=== PATIENT | female | born 1995 | race Caucasian/White ===

== ENCOUNTER 2017-01-01 15:23 | Emergency (ER) | payer MEDICAID ==
[2017-01-01 15:29] VITALS: BP 133/73; BMI 27.6
--- NOTE | 2017-01-01 15:59 | DR.GENAD ---
HPI - PCP Primary Care Physician: Jeffrey flanagan - HPI Comment HPI Comment: LEFT SIDED CHEST PAIN ASSOCIATED WITH NAUSEA, WEAKNESS AND SOB. - Complaint/Symptoms Chief Complaint Doctors Comments: CHEST PAIN TIMES ONE DAY. NO FEVER OR URI SYMTOMS. Chief Complaint:: CHEST PAIN SINCE LAST NIGHT - Nurses notes reviewed Nurses Notes Review: Yes - Source History Provided: Patient - Mode of Arrival Mode of Arrival: Ambulatory - Timing Onset of Chief Complaint: 12/31/16 Came on: Suddenly - Duration Duration: Constant Duration: Days - Severity Severity: Moderate PMH - PMH Past Medical History: No Past Surgical History: No - Family History History of Family Medical Conditions: Yes Family Medical History: Diabetes Mellitus, Cancer, Heart Failure, Hypertension - Social History Does patient currently use any type of tobacco product: Yes Have you used tobacco products in the last 12 months: Yes Type of Tobacco Use: Cigarettes How many years tobacco product used: 10 Does any household member use tobacco: No Alcohol Use: None Do you use any recreational Drugs:: No Lives With: Family Lives Where: Home - infectious screening In the last 2 months have you had wt loss of >10#?: NO Have you had fever, night sweats or hemotysis?: No Have you traveled outside the country in the last 6 months?: No Isolation: Standard ROS - Review of Systems Constitutional: Weakness, Fatigue. negative: Chills, Fever, Loss of Appetite Eyes: No Symptoms Reported. negative: Eye Pain, Discharge ENTM: No Symptoms Reported. negative: Ear Pain, Nose Discharge, Nose Congestion , Throat Pain Respiratoy: Short of Breath. negative: Productive Cough, Non-Productive Cough, Wheezing, Hemoptysis Cardiovascular: Chest Pain. negative: Edema, Palpitations Gastrointestinal/Abdominal: Nausea. negative: Abdominal Pain, Constipation, Diarrhea, Vomiting Genitourinary: No Symptoms Reported. negative: Dysuria, Frequency, Hematuria Neurological: No Symptoms Reported, Weakness Musculoskeletal: No Symptoms Reported Integumentary: No Symptoms Reported Hematologic/Lymphatic: No Symptoms Reported Endocrine: No Symptoms Reported All Other Systems: Reviewed and Negative PE - Vital Signs Vitals: Temperature 97.8 F Pulse Rate 74 Respiratory Rate 19 Blood Pressure 133/73 O2 Sat by Pulse Oximetry 100 - General Limitations: No Limitations General Appearance: Alert - Head Head Exam: Normal Inspection - Eyes Eye exam: Normal Appearance - ENT ENT Exam: Normal External Ear Exam External Ear Exam: Normal External Inspection TM/Canal Exam: Bilateral Normal Nose Exam: Normal Nose Exam Mouth Exam: Normal Inspection Throat Exam: Normal Inspection - Neck Neck Exam: Trachea Midline - Chest Chest Inspection: Symmetric Chest Wall Rise - Respiratory Respiratory Exam: Normal Lung Sounds Bilat, Chest Wall Tenderness (LT [place] TENDERNESS.) Respiratory Exam: Bilateral Clear to Auscultation - Cardiovascular Cardiovascular Exam: Regular Rate, Normal Rhythm, Normal Heart Sounds - Abdominal Exam Abdominal Exam: Normal Bowel Sounds, Soft. negative: Tenderness - Extremities Extremities Exam: Normal Inspection - Back Back Exam: Normal Inspection - Neurologic Neurological Exam: Alert, Oriented X3 - Psychiatric Psychiatric Exam: Normal Affect, Normal Mood - Skin Skin Exam: Normal Color MDM - Additional Information Additional Information Obtained From: Family - Differential Diagnosis Differential Diagnosis: CHEST PAIN, MT, PE, PUD, GASTRITIS, PNEUMONIA, PNEUMOTHORAX Course - Treatment Treatment: SEE ORDERS. - Education/Counseling Education/Counseling: Patient, Family, Education Educated On: Treatment, Diagnosis, Needs for Follow Up ROR - Labs Reviewed Laboratory Results Reviewed?: Yes Result Diagrams: 01/01/17 16:20 01/01/17 16:20 Laboratory: WBC 8.7 X10^3/uL (3.6-10.0) 01/01/17 16:20 RBC 4.39 X10^6/uL (3.5-5.4) 01/01/17 16:20 Hgb 12.8 g/dL (12.0-16.0) 01/01/17 16:20 Hct 37.4 % (36.0-47.0) 01/01/17 16:20 MCV 85.2 fL (80.0-100.0) 01/01/17 16:20 MCH 29.3 pg (27.0-34.0) 01/01/17 16:20 MCHC 34.3 g/dL (33.0-35.0) 01/01/17 16:20 RDW 14.0 % (11.6-16.5) 01/01/17 16:20 Plt Count 320 X10^3/uL (150.0-450.0) 01/01/17 16:20 MPV 7.8 fL (7.4-11.0) 01/01/17 16:20 Neut % 56.1 % (42.0-75.0) 01/01/17 16:20 Lymph % 33.5 % (21.0-51.0) 01/01/17 16:20 [place] % 6.1 % (0.0-13.0) 01/01/17 16:20 Eos % 3.6 % (0.9-2.9) H 01/01/17 16:20 Baso % 0.7 % (0.2-1.0) 01/01/17 16:20 Neut # 4.9 x10^3/uL (2.2-4.8) H 01/01/17 16:20 Lymph # 2.9 X10^3/uL (1.3-2.9) 01/01/17 16:20 [place] # 0.5 x10^3/uL (0.3-0.8) 01/01/17 16:20 Eos # 0.3 x10^3/uL (0.0-0.2) H 01/01/17 16:20 Baso # 0.1 X10^3/uL (0.0-0.1) 01/01/17 16:20 Absolute Nucleated RBC 0.1 /100WBC 01/01/17 16:20 D-Dimer < 100 ng/mL (0-400) 01/01/17 16:20 Sodium 142 mmol/L (136-145) 01/01/17 16:20 Corrected Sodium TNP 01/01/17 16:20 Potassium 4.1 mmol/L (3.5-5.1) 01/01/17 16:20 Chloride 107 mmol/L (98-107) 01/01/17 16:20 Carbon Dioxide 28.1 mmol/L (21-32) 01/01/17 16:20 BUN 5 mg/dL (7-18) L 01/01/17 16:20 Creatinine 0.76 mg/dL (0.55-1.02) 01/01/17 16:20 Est GFR (MDRD) Af Amer > 60 (>60) 01/01/17 16:20 Est GFR (MDRD) Non-Af > 60 (>60) 01/01/17 16:20 Glucose 87 mg/dL (65-99) 01/01/17 16:20 Calcium 8.6 mg/dL (8.5-10.1) 01/01/17 16:20 Corrected Calcium TNP 01/01/17 16:20 Total Bilirubin 0.20 mg/dL (0.2-1.0) 01/01/17 16:20 AST 10 Units/L (15-37) L 01/01/17 16:20 ALT 19 Units/L (12-78) 01/01/17 16:20 Alkaline Phosphatase 79 Units/L (46-116) 01/01/17 16:20 Creatine Kinase 43 Units/L (26-192) 01/01/17 16:20 CK-MB (CK-2) < 1.0 ng/mL (0-4.0) 01/01/17 16:20 CK/CKMB % Calc 2.3 % (<4) 01/01/17 16:20 Troponin I < 0.02 ng/mL (0-1.5) 01/01/17 16:20 Total Protein 7.1 g/dL (6.4-8.2) 01/01/17 16:20 Albumin 3.6 g/dL (3.4-5.0) 01/01/17 16:20 Globulin 3.5 g/dL (2.5-4.5) 01/01/17 16:20 Albumin/Globulin Ratio 1.0 Ratio (1.1-2.1) L 01/01/17 16:20 Specimen Type Clean catch urine 01/01/17 16:40 Urine Color Yellow (YELLOW) 01/01/17 16:40 Urine Appearance Hazy (CLEAR) 01/01/17 16:40 Urine pH 6.0 (5.0 - 8.0) 01/01/17 16:40 Ur Specific [place] 1.015 (1.000-1.030) 01/01/17 16:40 Urine Protein 2+ (NEGATIVE) 01/01/17 16:40 Urine Glucose (UA) Negative (NEGATIVE) 01/01/17 16:40 Urine Ketones Negative (NEGATIVE) 01/01/17 16:40 Urine Occult Blood 1+ (NEGATIVE) 01/01/17 16:40 Urine Nitrite Positive (NEGATIVE) 01/01/17 16:40 Urine Bilirubin Negative (NEGATIVE) 01/01/17 16:40 Urine Urobilinogen Normal (NORMAL) 01/01/17 16:40 Ur Leukocyte Esterase 3+ (NEGATIVE) 01/01/17 16:40 Urinalysis Comment Dip only ordered 01/01/17 16:40 Urine Opiates Screen Negative (NEG=<300) 01/01/17 16:40 Urine Methadone Screen Negative (NEG=<300) 01/01/17 16:40 Ur Barbiturates Screen Negative (NEG=<200) 01/01/17 16:40 Ur Phencyclidine Scrn Negative (NEG=<25) 01/01/17 16:40 Ur Amphetamines Screen Negative (NEG=<1000) 01/01/17 16:40 U Benzodiazepines Scrn Negative (NEG=<200) 01/01/17 16:40 Urine Cocaine Screen Negative (NEG=<300) 01/01/17 16:40 U Marijuana (THC) Screen Positive (NEG=<50) A 01/01/17 16:40 H. pylori IgG Antibody Positive (NEGATIVE) A 01/01/17 16:20 - XRAY XRAY Interpreted by: Radiologist XRAY Findings: REPORT DISCUSS WITH PATIENT. - EKG Rhythm: NSR (EKG NOTED.) - Diagnosis Discharge Problem: Helicobacter pylori antibody positive, Helicobacter heilmannii gastritis, Costochondritis Chest pain Qualifiers: Chest pain type: other chest pain Qualified Code(s): R07.89 - Other chest pain ; R07.8 - Other chest pain UTI (urinary tract infection) Qualifiers: Urinary tract infection type: site unspecified Hematuria presence: without hematuria Qualified Code(s): N39.0 - Urinary tract infection, site not specified - Discharge Plan Disposition: 01 HOME, SELF-CARE Condition: Stable Prescriptions: Ibuprofen [MOTRIN TAB 600 MG *] 600 mg PO TID PRN #20 tab PRN Reason: Pain/Inflammation Ranitidine HCl [ZANTAC TAB 150 MG *] 150 mg PO BID #60 tab Sulfamethoxazole-Trimethoprim [BACTRIM DS TAB 800/160 MG *] 1 tab PO BID #20 tab - Follow ups/Referrals Follow ups/Referrals: JEFFREY FLANAGAN [Primary Care Provider] - 3 days - Instructions Instructions: Gastritis, Adult, [id number], Helicobacter Pylori Antibodies Test, Urinary Tract Infection, Costochondritis, Chest Pain Observation Additional Instructions: RETURN TO ED IF WORSE. PCP TO TREAT POSITIVE H PYLORI.
[2017-01-01] MEDS ORDERED: TORADOL 60 MG VIAL IM ONE (16:07)
[2017-01-01] MEDS ORDERED: PEPCID TAB 20 MG PO ONE (16:07)
[2017-01-01] MEDS ORDERED: TORADOL 60 MG VIAL ONE (16:22)
[2017-01-01] MEDS ORDERED: PEPCID TAB 20 MG ONE (16:22)
[2017-01-01 16:40] LABS: BASOPHILS # (AUTO) 0.1 X10^3/uL (0.0-0.1); BASOPHILS % (AUTO) 0.7 % (0.2-1.0); EOSINOPHILS # (AUTO) 0.3 x10^3/uL (0.0-0.2); EOSINOPHILS % (AUTO) 3.6 % (0.9-2.9); HEMATOCRIT 37.4 % (36.0-47.0); HEMOGLOBIN 12.8 g/dL (12.0-16.0); LYMPHOCYTES # (AUTO) 2.9 X10^3/uL (1.3-2.9); LYMPHOCYTES % (AUTO) 33.5 % (21.0-51.0); MEAN CORPUSCULAR HEMOGLOBIN 29.3 pg (27.0-34.0); MEAN CORPUSCULAR HGB CONC 34.3 g/dL (33.0-35.0); MEAN CORPUSCULAR VOLUME 85.2 fL (80.0-100.0); MEAN PLATELET VOLUME 7.8 fL (7.4-11.0); MONOCYTES # (AUTO) 0.5 x10^3/uL (0.3-0.8); MONOCYTES % (AUTO) 6.1 % (0.0-13.0); NEUTROPHILS # (AUTO) 4.9 x10^3/uL (2.2-4.8); NEUTROPHILS % (AUTO) 56.1 % (42.0-75.0); PLATELET COUNT 320 X10^3/uL (150.0-450.0); RED BLOOD COUNT 4.39 X10^6/uL (3.5-5.4); WHITE BLOOD COUNT 8.7 X10^3/uL (3.6-10.0)
[2017-01-01 16:52] LABS: BILIRUBIN,URINE NEGATIVE (NEGATIVE); BLOOD/HEMOGLOBIN,URINE 1+ (NEGATIVE); GLUCOSE, URINE NEGATIVE (NEGATIVE); KETONES,URINE NEGATIVE (NEGATIVE); LEUKOCYTE ESTERASE ,URINE 3+ (NEGATIVE); NITRITES,URINE POSITIVE (NEGATIVE); PROTEIN,URINE 2+ (NEGATIVE); UROBILINOGEN,URINE NORMAL (NORMAL)
[2017-01-01 16:58] LABS: BLOOD UREA NITROGEN 5 mg/dL (7-18); CALCIUM 8.6 mg/dL (8.5-10.1); CARBON DIOXIDE 28.1 mmol/L (21-32); CHLORIDE 107 mmol/L (98-107); CREATININE 0.76 mg/dL (0.55-1.02); GLUCOSE 87 mg/dL (65-99); SODIUM 142 mmol/L (136-145); TROPONIN I < 0.02 ng/mL (0-1.5); eGFR BLACK RACES > 60 (>60); eGFR NON BLACK RACES > 60 (>60)
[2017-01-01 17:00] LABS: APPEARANCE,URINE HAZY (CLEAR); COLOR,URINE YELLOW (YELLOW)
[2017-01-01 17:03] LABS: ALANINE AMINOTRANSFERASE 19 Units/L (12-78); ALBUMIN 3.6 g/dL (3.4-5.0); ALKALINE PHOSPHATASE 79 Units/L (46-116); ASPARTATE AMINO TRANSFERASE 10 Units/L (15-37); CKMB % 2.3 % (<4); CREATINE KINASE 43 Units/L (26-192); CREATINE KINASE MB < 1.0 ng/mL (0-4.0); TOTAL PROTEIN 7.1 g/dL (6.4-8.2)
[2017-01-01 17:09] LABS: D DIMER < 100 ng/mL (0-400)
== END 2017-01-01 17:29 | disposition home or self-care (01) ==
LOC: ER 15:35
DX: R07.89 Other chest pain (principal); M94.0 Chondrocostal junction syndrome [Tietze]; N39.0 Urinary tract infection, site not specified; B96.81 Helicobacter pylori [H. pylori] as the cause of diseases classified elsewhere
CPT/HCPCS: 36415; 80053; 80307; 81003; 82550; 82553; 84484; 85025; 85378; 86677; 93005; 93010; 96372; 99282; 99283; G0434; J1885

== ENCOUNTER 2017-04-04 17:12 | Emergency (ER) | payer MEDICAID ==
[2017-04-04 17:21] VITALS: BP 136/92; BMI 27.6
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
== END 2017-04-04 18:08 | disposition left against medical advice (07) ==
LOC: ER 17:27
DX: M54.89 Other dorsalgia (principal)
CPT/HCPCS: 99281; 99283

== ENCOUNTER 2017-08-27 12:39 | Emergency (ER) | payer SELFPAY ==
[2017-08-27 12:48] VITALS: BP 117/67; BMI 25.6
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
--- NOTE | 2017-08-27 13:51 | RAD ---
Examination: Left hand, three views History: Trauma Findings: There is minimal cortical deformity involving the distal neck of the 4th metacarpal. No alden or displacement or deformity is noted and the joint spaces are preserved. Impression: Suspect acute undisplaced fracture distal left 4th metacarpal. Correlate clinically. Reported By:
--- NOTE | 2017-08-27 13:52 | RAD ---
Examination: Left wrist, three views History: Trauma Findings: There is no evidence for wrist fracture or dislocation. There is subtle suggestion of fract ure of the distal 4th metacarpal, described on the accompanying hand examination. Impression: Negative left wrist. See above. Reported By:
--- NOTE | 2017-08-27 13:52 | RAD ---
Examination: AP chest History: Cough and fever Findings: Normal heart size with clear lungs and pleural spaces. Impression: Normal. Reported By:
== END 2017-08-27 14:40 | disposition home or self-care (01) ==
LOC: ER 12:56
DX: S62.305A Unspecified fracture of fourth metacarpal bone, left hand, initial encounter for closed fracture (principal); X58.XXXA Exposure to other specified factors, initial encounter; Y92.9 Unspecified place or not applicable
CPT/HCPCS: 71045; 73100; 73130; 99282